=== PATIENT | female | born 1960 | race Hispanic/Latino ===

== ENCOUNTER 2016-04-01 13:58 | Emergency (ER) | payer OTHER ==
[~2016-04-01] VITALS: Ht 157.5 cm; Wt 94.8 kg
[~2016-04-01 13:58] MED LIST: ALBUTEROL SULFAT3 M1 INH; AUGMENTIN 875 M1 TAB PO; FLONASE120 SPRAY/ NAS; IOPHEN C-NR 10473 ML PO; MEDROL DOSEPAK1 PAC PO; MEDROL4 MG PO; MOTRIN600 MG PO; NORCO 325 MG-51 TAB PO; NOVAPLUS V0.09 MG/Ac INH; PREDNISONE10 MG PO; PRINIVIL 5MG5 MG; PROAIR HFA0.09 MG/Ac INH; PROMETH/CODEIN120 ML PO; PROTONIX 40MG T40 MG PO; ROBITUSSIN W/CO10 ML PO; SIMVASTATIN20 M1; VALIUM5 M1 PO; VICODIN5-300 PO; VITAMIN D50000 IU PO; XANAX0.5 MG PO; ZITHROMAX Z-PA250 M1 PO; [UNRECOGNIZED DRUG - OTHER] PO
--- NOTE | 2016-04-01 16:07 | ED GENERAL ADULT ---
History of Present Illness General Chief Complaint: General Adult Stated Complaint: BACK AND LEG PAIN Source: patient Exam Limitations: no limitations Vital Signs & Intake/Output Vital Signs & Intake/Output Vital Signs Date Time Temp Pulse Resp B/P Pulse O2 O2 Flow FiO2 Ox Delivery Rate 04/01 1657 94 16 131/78 96 Room Air 04/01 1432 98.5 112 20 140/93 99 Room Air Allergies Coded Allergies: NO KNOWN ALLERGIES (04/01/16) Uncoded Allergies: PCN (Intermediate, HIVES 04/01/16) Triage Note: C/O LEFT LOWER LEG PAIN RADIATING TO BUTTOCK X 2 DAYS. ALSO STATES SHE WAS NAUSEATED EARLIER AND HAS HAD SOME CHEST TIGHTNESS TODAY. Triage Nurses Notes Reviewed? yes Onset: Gradual Duration: day(s): (1) Timing: no prior history Injury Environment: home Severity: moderate Severity Numbers: 6 Modifying Factors: Improves With: immobilization. Worsens With: movement. HPI: Patient is a 56-year-old female with remote history of colon cancer, in remission for over 10 years now presenting to the emergency department with chief complaint of left-sided low back pain that radiates into the left buttock and down the left leg. Pain has been going on for the past 2 days worse with movement. Denies any injury or falls. History of similar symptoms on the right side several years ago. Denies any lower extremity weakness. No urinary incontinence or retention. Area and she reports that this morning she had an episode of shortness of breath. She called her primary care physician who told her to come in to rule out a blood clot in her leg. Denies any calf pain or swelling. No recent travel. Denies any chest pain or palpitations. (RACH SMITH) Reconcile Medications Albuterol Sulfate 3 ML NEB 3 ML INH TID PRN RESPIRATORY (Reported) Albuterol Sulfate (Proair Hfa) 0.09 MG/Actuation SUSAN 2 PUFF INH PRN RESPIRATORY (Reported) Alprazolam (Xanax) 0.5 MG TAB 1 TAB PO PRN ANXIETY (Reported) ERGOCALCIFEROL (VITAMIN D2) (Vitamin D2) 50,000 IU SGL 1 CAP PO QSUN SUPPLEMENT (Reported) Fish Oil (The Very Finest Fish Oil [place]-3) (Unknown Strength) OIL (Unknown Dose) PO DAILY SUPPLEMENT (Reported) HYDROCODONE/ACETAMINOPHEN (Hydrocodon-Acetaminophen 5-325) 1 TAB TAB 1 TAB PO Q6 PRN BREAKTHROUGH PAIN Ibuprofen (Motrin) 600 MG TAB 1 TAB PO Q6 PRN PAIN Lisinopril (Prinivil) (Unknown Strength) TAB (Unknown Dose) UNKNOWN (Reported ) Pantoprazole Sodium (Protonix) 40 MG TAB 40 MG PO DAILY PRN GI (Reported) Prednisone 20 MG TABLET 1 TAB PO BID back pain Simvastatin (Unknown Strength) TAB (Unknown Dose) UNKNOWN (Reported) (KIM WYLIE,KATHLEEN) Past History Travel History Traveled to [place] past 21 day No Medical History Any Pertinent Medical History? 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 No (RACH SMITH) Review of Systems Review of Systems Constitutional: Reports: no symptoms. Comments Review of systems: See HPI, All other systems negative. Constitutional, no chills fever or weight loss HEENT: No visual changes no sore throat no congestion Cardiovascular: No chest pain ,palpitation , orthopnea or ankle swelling Skin, no jaundice no rashes Respiratory: No cough sputum or hemoptysis GI: No nausea no vomiting : No dysuria No hematuria Muscle skeletal: no neck pain, Neurologic: No numbness no confusion Psych: No stress anxiety or depression,. Heme/endocrine: No bruising no bleeding no polyuria or polydipsia Immunology: No splenectomy or history of AIDS (RACH SMITH) Physical Exam Physical Exam General Appearance: well developed/nourished, no apparent distress, alert, awake , comfortable Comments: Well-developed well-nourished person in no acute distress HEENT: Pupils equally round and reactive to light and accommodation. Nose is atraumatic. Neck: Supple, no lymphadenopathy, normal range of motion without pain or tenderness Back: Tenderness to palpation of the left lumbar paraspinal muscles. No bony tenderness to palpation throughout entire spine. Negative modified straight leg raise bilaterally. Limited range of motion of the back secondary to pain. Cardiovascular: Regular rate and rhythms no murmurs rubs or gallops, normal JVP Respiratory: Chest nontender. No respiratory distress.breath sounds clear to auscultation bilaterally Abdomen: Soft, nontender nondistended, no appreciable organomegaly. Normal bowel sounds. No ascites Extremity: No edema, no calf tenderness to palpation, normal and equal pulses. Muscular strength is 5 out of 5 in all joints. Subpoena Server strength is equal and symmetric bilaterally. Neuro: Alert oriented x3, motor sensory normal, patellar reflexes are 2+ bilaterally. Skin: No appreciable rash on exposed skin, skin is warm and dry. Psych: Mood and affect is normal, memory and judgment is normal. Core Measures ACS in differential dx? Yes CVA/TIA Diagnosis: No Severe Sepsis Present: No Septic Shock Present: No (OLIVIER LEUNG,RACH) Progress Differential Diagnoses I considered the following diagnoses in my evaluation of the patient: DVT, muscle strain, sciatica, herniated disc, cauda equina, pe Plan of Care: Orders Procedure Date/time Status Telemetry/Senior Planning Analyst 04/01 1607 Active URINALYSIS 04/01 1606 Complete TROPONIN LEVEL 04/01 1606 Complete D-DIMER 04/01 1606 Complete COMPREHENSIVE METABOLIC PANEL 04/01 1606 Complete CBC WITHOUT DIFFERENTIAL 04/01 1606 Complete EKG 04/01 1431 Active Laboratory Tests 04/01/16 1627: Anion Gap 13, Estimated GFR > 60, BUN/Creatinine Ratio 15.0, Glucose 208 H, Calcium 9.7, Total Bilirubin 0.5, AST 44 H, ALT 58 H, Alkaline Phosphatase 81, Troponin I < 0.01, Total Protein 7.9, Albumin 4.3, Globulin 3.6, Albumin/ Globulin Ratio 1.2, D-Dimer < 200, CBC w Diff NO MAN DIFF REQ, RBC 4.70, MCV 95.6, MCH 33.0 H, RDW 12.3, MPV 8.7, Gran % 55.7, Lymphocytes % 35.4, Monocytes % 4.9, Eosinophils % 3.5, Basophils % 0.5, Absolute Granulocytes 5.5, Absolute Lymphocytes 3.5 H, Absolute Monocytes 0.5, Absolute Eosinophils 0.3, Absolute Basophils 0.1, PUBS MCHC 34.6, Urine Color YEL, Urine Clarity CLEAR, Urine pH 6.0, Ur Specific [place] 1.010, Urine Protein NEG, Urine Ketones NEG, Urine Nitrite NEG, Urine Bilirubin NEG, Urine Urobilinogen 0.2, Ur Leukocyte Esterase NEG, Ur Microscopic EXAM NOT REQUIRED, Urine Hemoglobin NEG, Urine Glucose NEG Diagnostic Imaging: Viewed by Me: Radiology Read. Discussed w/RAD: Radiology Read. Radiology Impression: PATIENT: OLIVIA LOUIE PRESENT AGE: 56 PATIENT ACCOUNT NO: [id number] : 61 LOCATION: [facility] ORDERING PHYSICIAN: RACH LEUNG SERVICE DATE: 04/01/16 EXAM TYPE: RAD - XRY-PORTABLE CHEST XRAY EXAMINATION: XR PORTABLE CHEST CLINICAL INFORMATION: Cardiomegaly. Generous of breath. COMPARISON: Chest x-ray 05/16/2015 TECHNIQUE: Portable AP view of the chest was obtained. 4:19 PM FINDINGS: No significant abnormality is noted involving the heart, lungs, mediastinum, bony thorax or soft tissues. IMPRESSION: Normal chest. DICTATED BY: MAJOR MELENDEZ MD DATE/TIME DICTATED:04/01/161640 STEAM HAND:LORETA DATE/TIME TRANSCRIBED:1640 CONFIDENTIAL, DO NOT COPY WITHOUT APPROPRIATE AUTHORIZATION. < Electronically signed in Other Vendor System> SIGNED BY: MAJOR MELENDEZ MD 1645 CXR Impression: no acute abnormality, no infiltrates, normal size heart, normal mediastinum Initial ED EKG: sinus rhythm, 98 bpm, left ventricular hypertrophy Comments: Patient medicated with Toradol arrival, likely sciatica. Patient premature several of the vitals are stable and no current symptoms. Cannot exclude PE at this time. D-dimer ordered. Patient informed of all lab work results. EKG is unchanged chest x-ray unremarkable. Patient will be discharged treated for sciatica. She was informed that steroids can increase blood glucose level and she Should keep an eye on her blood glucose levels on prednisone. (OLIVIER LEUNG,RACH) Departure Departure Time of Disposition: 1753 Disposition: HOME OR SELF CARE Condition: Stable Clinical Impression Primary Impression: Sciatica Qualifiers: Laterality: left Qualified Code: M54.32 - Sciatica, left side Referrals: DIMITRY WYLIE,WENDY Painting (PCP/Family) Additional Instructions: Follow-up with your primary care physician call to make appointment. Take prednisone as prescribed. Return for worsening symptoms or concerns. Avoid heavy lifting. Departure Forms: Customer Survey General Discharge Information Prescriptions: Current Visit Scripts Prednisone 1 TAB PO BID #6 TAB (RACH SMITH) PA/HEALTH SAFETY AND ENVIRONMENT MANAGER Co-Sign Statement Statement: ED Attending supervision documentation- [] I saw and evaluated the patient. I have also reviewed all the pertinent lab results and diagnostic results. I agree with the findings and the plan of care as documented in the PA's/HEALTH SAFETY AND ENVIRONMENT MANAGER's documentation. x I have reviewed the ED Record and agree with the PA's/HEALTH SAFETY AND ENVIRONMENT MANAGER's documentation. [] Additions or exceptions (if any) to the PAs/HEALTH SAFETY AND ENVIRONMENT MANAGER's note and plan are summarized below: [] (KIM WYLIE,KATHLEEN) Critical Care Note Critical Care Note Critical Care Time: non-applicable (RACH SMITH)
[2016-04-01 16:39] LABS: ABSOLUTE BASOPHIL COUNT 0.1 /CUMM (0.0-0.2); ABSOLUTE EOSINOPHIL COUNT 0.3 /CUMM (0.0-0.7); ABSOLUTE GRANULOCYTE CT 5.5 /CUMM (1.4-6.5); ABSOLUTE MONOCYTE COUNT 0.5 /CUMM (0.10-0.60); BASOPHIL % 0.5 % (0.0-2.0); EOSINOPHIL % 3.5 % (0-5); GRANULOCYTE % 55.7 % (42.2-75.2); MEAN CORPUSCULAR HGB CONC 34.6 G/DL (33.0-37.0); MEAN CORPUSCULAR VOLUME 95.6 FL (81.0-99.0); MEAN PLATELET VOLUME 8.7 FL (7.4-10.4); PLATELET COUNT 236 /CUMM (130-400); RBC DISTRIBUTION WIDTH 12.3 % (11.5-14.5); WHITE BLOOD CELL COUNT 9.9 /CUMM (4.8-10.8)
[2016-04-01 16:45] LABS: ABSOLUTE LYMPH COUNT 3.5 /CUMM (1.2-3.4)
--- NOTE | 2016-04-01 16:46 | RADIOLOGY REPORT ---
EXAMINATION: XR PORTABLE CHEST CLINICAL INFORMATION: Cardiomegaly. Generous of breath. COMPARISON: Chest x-ray 05/16/2015 TECHNIQUE: Portable AP view of the chest was obtained. 4:19 PM FINDINGS: No significant abnormality is noted involving the heart, lungs, mediastinum, bony thorax or soft tissues. IMPRESSION: Normal chest.
[2016-04-01 16:57] VITALS: BP 131/78
[2016-04-01] MEDS ORDERED: PREDNISONE20 M1 PO (17:57)
== END 2016-04-01 18:18 ==
LOC: ERH 13:58
PROVIDERS: Physician Assistant
DX: M54.42 Lumbago with sciatica, left side (principal)
CPT/HCPCS: 81003; 93005; 93010; J1885; J3101

== ENCOUNTER 2016-05-17 00:18 | Emergency (ER) | payer OTHER ==
[~2016-05-17] VITALS: Ht 162.6 cm; Wt 86.2 kg
[~2016-05-17 00:18] MED LIST changes: +PREDNISONE20 M1 PO
--- NOTE | 2016-05-17 00:27 | ED CARDIAC/CP/PALPITATIONS ---
History of Present Illness General Chief Complaint: General Adult Stated Complaint: LT ARM PAIN,SLIGHT NAUSEA/CP PER PT Source: patient Exam Limitations: no limitations Vital Signs & Intake/Output Vital Signs & Intake/Output Vital Signs Date Time Temp Pulse Resp B/P Pulse O2 O2 Flow FiO2 Ox Delivery Rate 05/17 0119 97 Room Air 05/17 0118 122/75 05/17 0046 96.2 100 18 159/105 97 Room Air Allergies Uncoded Allergies: PCN (Intermediate, HIVES 04/01/16) Reconcile Medications Albuterol Sulfate 3 ML NEB 3 ML INH TID PRN RESPIRATORY (Reported) Albuterol Sulfate (Proair Hfa) 0.09 MG/Actuation SUSAN 2 PUFF INH PRN RESPIRATORY (Reported) Alprazolam (Xanax) 0.5 MG TAB 1 TAB PO PRN ANXIETY (Reported) ERGOCALCIFEROL (VITAMIN D2) (Vitamin D2) 50,000 IU SGL 1 CAP PO QSUN SUPPLEMENT (Reported) Fish Oil (The Very Finest Fish Oil [place]-3) (Unknown Strength) OIL (Unknown Dose) PO DAILY SUPPLEMENT (Reported) HYDROCODONE/ACETAMINOPHEN (Hydrocodon-Acetaminophen 5-325) 1 TAB TAB 1 TAB PO Q6 PRN BREAKTHROUGH PAIN Ibuprofen (Motrin) 600 MG TAB 1 TAB PO Q6 PRN PAIN Lisinopril (Prinivil) (Unknown Strength) TAB (Unknown Dose) UNKNOWN (Reported ) Meloxicam (Mobic) 15 MG TABLET 1 TAB PO DAILY SHOULDER STRAIN Pantoprazole Sodium (Protonix) 40 MG TAB 40 MG PO DAILY PRN GI (Reported) Prednisone 20 MG TABLET 1 TAB PO BID back pain Simvastatin (Unknown Strength) TAB (Unknown Dose) UNKNOWN (Reported) Triage Nurses Notes Reviewed? yes Onset: INTERMITTENT Duration: hour(s): (FEW) Timing: single episode today Quality/Severity: moderate Location: LEFT CHEST Radiation: back, LEFT ARM Activities at Onset: none HPI: 56-year-old female with history of diabetes, hypertension, distal edema presents from home for chief complaint of left arm pain, heaviness, chest pain nausea shortness of breath and sweating. She states symptoms started around 2:00 this afternoon when she was getting lunch ready in the kitchen. She states that she took one Chasity aspirin at that time and felt better. This evening around 9:00 when she was laying down for sleep she felt the pain returned. She states she was unable to sleep secondary to the pain. She was short of breath. She also complains of some URI symptoms over the last few days and she has had low-grade fevers up to 99 and 100 at home today. No productive sputum. Patient's had a cardiac catheterization 2 or 3 years ago which was ordered by Dr. Byrd. She states the cardiac catheterization was normal. She is a daily smoker. Positive family history of cardiac disease. Past History Medical History Any Pertinent Medical History? 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 No Review of Systems Review of Systems Constitutional: Denies: chills, fever. EENTM: Reports: no symptoms. Respiratory: Reports: short of breath. Denies: cough, sputum production. Cardiovascular: Reports: chest pain. Denies: palpitations. GI: Denies: abdominal pain. Genitourinary: Reports: no symptoms. Musculoskeletal: Reports: back pain, joint pain, muscle pain, muscle stiffness, neck pain. Skin: Reports: no symptoms. Neurological/Psychological: Reports: anxiety. Hematologic/Endocrine: Denies: bruising, bleeding. Immunologic/Allergic: Denies: splenectomy. All Other Systems: Reviewed and Negative Physical Exam Physical Exam General Appearance: well developed/nourished, alert, awake, anxious, mild distress Head: atraumatic, normal appearance, active bleeding Eyes: Bilateral: normal appearance, PERRL, EOMI. Ears, Nose, Throat: normal pharynx, hearing grossly normal Neck: normal inspection, supple, full range of motion Respiratory: normal breath sounds, chest non-tender, no respiratory distress Cardiovascular: regular rate/rhythm, NO M/R/G Peripheral Pulses: 2+ radial (R), 2+ radial (L) Back: normal inspection Extremities: normal inspection, normal range of motion, no edema Neurologic/Psych: no motor/sensory deficits, awake, alert, oriented x 3 Skin: intact, normal color, warm/dry Core Measures ACS in differential dx? Yes ASA ordered for poss ACS? Yes-ordered Severe Sepsis Present: No Septic Shock Present: No Progress Differential Diagnosis: AMI, aortic dissection, costochondritis, musculoskeletal pain, myocarditis, pericarditis, pneumonia, pneumothorax, pulmonary embolism, PUD/GERD, unstable angina Plan of Care: Orders Procedure Date/time Status TROPONIN LEVEL 05/18 399 Complete EKG 05/18 399 Active Telemetry/Plating Tank Operator 05/17 37 Active TROPONIN LEVEL 05/17 37 Complete PARTIAL THROMBOPLASTIN TIME 05/17 37 Complete PROTHROMBIN TIME 05/17 37 Complete D-DIMER 05/17 37 Complete COMPREHENSIVE METABOLIC PANEL 05/17 37 Complete CBC WITHOUT DIFFERENTIAL 05/17 37 Complete EKG 05/17 21 Active Laboratory Tests 05/17/16 0407: Troponin I < 0.01 05/17/16 0100: Anion Gap 10, Estimated GFR > 60, BUN/Creatinine Ratio 12.9, Glucose 162 H, Calcium 9.5, Total Bilirubin 0.5, AST 38 H, ALT 57 H, Alkaline Phosphatase 70, Troponin I < 0.01, Total Protein 7.2, Albumin 4.0, Globulin 3.2, Albumin/ Globulin Ratio 1.3, PT 10.8, INR 1.03, APTT 29, D-Dimer 208, CBC w Diff NO MAN DIFF REQ, RBC 4.68, MCV 96.0, MCH 33.2 H, RDW 12.3, MPV 9.3, Gran % 48.7, Lymphocytes % 42.1, Monocytes % 5.3, Eosinophils % 3.3, Basophils % 0.6, Absolute Granulocytes 4.6, Absolute Lymphocytes 3.9 H, Absolute Monocytes 0.5, Absolute Eosinophils 0.3, Absolute Basophils 0.1, PUBS MCHC 34.6 CP 5/10 FROM 08/09. LABS STILL PENDING. 2:45 AM CXR/SHOULDER XRAY NEGATIVE. PATIENT CURRENTLY PAIN FREE. REPEAT TROPONIN/EKG AT 4 AM. D/W PATIENT AND FAMILY. 5 am repeat troponin /ekg normal. No recurrence of symptoms. Cardiac cath within last 3 years WNL. (DC WYLIE,JAREK) Diagnostic Imaging: Viewed by Me: Radiology Read. Discussed w/RAD: Radiology Read. Radiology Impression: PATIENT: OLIVIA LOUIE PRESENT AGE: 56 PATIENT ACCOUNT NO: [id number] : 61 LOCATION: [facility] ORDERING PHYSICIAN: JAREK IRWIN MD SERVICE DATE: 05/17/16 EXAM TYPE: RAD - XRY -SHOULDER COMPLETE-LEFT EXAMINATION: XR SHOULDER, LEFT CLINICAL INFORMATION: Severe left shoulder pain. COMPARISON: None TECHNIQUE: Three views of the left shoulder. FINDINGS: No fracture or dislocation. The humeral head articulates appropriately with the glenoid. Small marginal osteophytes are noted. Mild degenerative changes at the acromioclavicular joint. The visualized lung is clear. IMPRESSION: No fracture or malalignment. Mild degenerative changes. DICTATED BY: PRADEEP HARRIS MD DATE/TIME DICTATED:05/17/16221 GOLD LETTERER:GUPTA DATE/TIME TRANSCRIBED:05/17/16221 CONFIDENTIAL, DO NOT COPY WITHOUT APPROPRIATE AUTHORIZATION. <Electronically signed in Other Vendor System> SIGNED BY: PRADEEP HARRIS MD 05/17/16225, PATIENT: OLIVIA LOUIE PRESENT AGE: 56 PATIENT ACCOUNT NO: [id number] : 62 LOCATION: [facility] ORDERING PHYSICIAN: JAREK IRWIN MD SERVICE DATE: 05/17/16 EXAM TYPE: RAD - XRY-SHOULDER COMPLETE-LEFT EXAMINATION: XR SHOULDER, LEFT CLINICAL INFORMATION: Severe left shoulder pain. COMPARISON: None TECHNIQUE: Three views of the left shoulder. FINDINGS: No fracture or dislocation. The humeral head articulates appropriately with the glenoid. Small marginal osteophytes are noted. Mild degenerative changes at the acromioclavicular joint. The visualized lung is clear. IMPRESSION: No fracture or malalignment. Mild degenerative changes. DICTATED BY: PRADEEP HARRIS MD DATE/TIME DICTATED:05/17/16221 GOLD LETTERER:GUPTA DATE/TIME TRANSCRIBED:05/17/16221 CONFIDENTIAL, DO NOT COPY WITHOUT APPROPRIATE AUTHORIZATION. <Electronically signed in Other Vendor System> SIGNED BY: PRADEEP HARRIS MD 05/17/16225 Initial ED EKG: NSR, inferior t wave inversions Prior EKG: unchanged Repeat EKG: unchanged Departure Departure Time of Disposition: 0504 Disposition: HOME OR SELF CARE Condition: Stable Clinical Impression Primary Impression: Arm pain, left Referrals: DIMITRY WYLIE,WENDY Painting (PCP/Family) Additional Instructions: Please follow up with her primary care doctor in the office. Take the Mobic as directed for pain. Return to the ER for any changing or worsening symptoms. Departure Forms: Customer Survey General Discharge Information Prescriptions: Current Visit Scripts Meloxicam (Mobic) 1 TAB PO DAILY #14 TAB Critical Care Note Critical Care Note Critical Care Time: non-applicable
[2016-05-17 01:13] LABS: ABSOLUTE BASOPHIL COUNT 0.1 /CUMM (0.0-0.2); ABSOLUTE EOSINOPHIL COUNT 0.3 /CUMM (0.0-0.7); ABSOLUTE GRANULOCYTE CT 4.6 /CUMM (1.4-6.5); ABSOLUTE LYMPH COUNT 3.9 /CUMM (1.2-3.4); ABSOLUTE MONOCYTE COUNT 0.5 /CUMM (0.10-0.60); BASOPHIL % 0.6 % (0.0-2.0); EOSINOPHIL % 3.3 % (0-5); GRANULOCYTE % 48.7 % (42.2-75.2); HEMATOCRIT 44.9 % (37-47); MEAN CORPUSCULAR HGB 33.2 PG (27.0-31.0); MEAN CORPUSCULAR HGB CONC 34.6 G/DL (33.0-37.0); MEAN PLATELET VOLUME 9.3 FL (7.4-10.4); PLATELET COUNT 204 /CUMM (130-400); RBC DISTRIBUTION WIDTH 12.3 % (11.5-14.5); RED BLOOD CELL CT 4.68 /CUMM (4.20-5.40); WHITE BLOOD CELL COUNT 9.4 /CUMM (4.8-10.8)
[2016-05-17 01:27] LABS: PT 10.8 SEC (9.4-12.5); PTT 29 SEC (25-37)
--- NOTE | 2016-05-17 02:25 | RADIOLOGY REPORT ---
EXAMINATION: XR CHEST CLINICAL INFORMATION: Chest pain radiating to the back/shoulder COMPARISON: 04/01/2016 TECHNIQUE: 2 views of the chest were obtained. FINDINGS: The lungs are well expanded. There is no focal consolidation, edema, or effusion. No pneumothorax. The cardiomediastinal silhouette is within normal limits. No acute osseous abnormality. IMPRESSION: Clear lungs. Stable cardiomediastinal silhouette without widening.
--- NOTE | 2016-05-17 02:26 | RADIOLOGY REPORT ---
EXAMINATION: XR SHOULDER, LEFT CLINICAL INFORMATION: Severe left shoulder pain. COMPARISON: None TECHNIQUE: Three views of the left shoulder. FINDINGS: No fracture or dislocation. The humeral head articulates appropriately with the glenoid. Small marginal osteophytes are noted. Mild degenerative changes at the acromioclavicular joint. The visualized lung is clear. IMPRESSION: No fracture or malalignment. Mild degenerative changes.
[2016-05-17] MEDS ORDERED: MOBIC15 M1 PO (05:05)
[2016-05-17 05:12] VITALS: BP 109/71
== END 2016-05-17 05:32 ==
LOC: ERH 00:18
PROVIDERS: Emergency Medicine
DX: M79.602 Pain in left arm (principal); R07.9 Chest pain, unspecified
CPT/HCPCS: 73030-LT; 93005; 93010; 96374; J1885; J3490

== ENCOUNTER 2017-04-29 10:16 | Emergency (ER) | payer OTHER ==
[~2017-04-29] VITALS: Ht 157.5 cm; Wt 93.4 kg
[~2017-04-29 10:16] MED LIST changes: +CYCLOBENZAPRINE10 M1 PO; +MOBIC15 M1 PO
--- NOTE | 2017-04-29 10:51 | ED CARDIAC/CP/PALPITATIONS ---
History of Present Illness General Chief Complaint: General Adult Stated Complaint: FAST HEART RATE Vital Signs & Intake/Output Vital Signs & Intake/Output Vital Signs Date Time Temp Pulse Resp B/P B/P Pulse O2 O2 Flow FiO2 Mean Ox Delivery Rate 04/29 1734 84.0 100 Room Air 04/29 1542 96.5 95 16 115/75 98 Room Air 04/29 1445 90 18 103/73 99 Nasal 2.0L Cannula 04/29 1119 98 Room Air 04/29 1043 96.7 120 18 131/92 95 Room Air Room Air ED Intake and Output 04/30 0000 04/29 1200 Intake Total 1000 Output Total Balance 1000 Intake, IV 1000 Patient 206 lb Weight Weight Reported by Patient Measurement Method Allergies Coded Allergies: Penicillins (Intermediate, HIVES 04/17/17) latex (Intermediate, HIVES 04/17/17) Reconcile Medications Losartan Potassium 50 MG TABLET 1 TAB PO DAILY HEART (Reported) Metformin HCl (Metformin HCl ER) 500 MG TAB.ER.24H 2 TAB PO BID DIABETES ( Reported) Pravastatin Sodium 20 MG TABLET 1 TAB PO DAILY CHOLESTEROL (Reported) Sitagliptin Phosphate (Januvia) 100 MG TABLET 1 TAB PO DAILY DIABETES ( Reported) Triage Note: PT TO ED WITH C/O "FAST HEART RATE", HEART RATED IN TRIAGE 120. 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 Surgical History Surgical History: cholecystectomy, LEFT LUMPECTOMY 2002 NEGATIVE CARDIAC CATH 2014 (TELLY - NEGATIVE) Psychosocial History What is your primary language Slovenian Tobacco Use: Current Daily Use Daily Tobacco Use Amount/Type: =< 4 Cigarettes daily ETOH Use: denies use Illicit Drug Use: denies illicit drug use Progress Plan of Care: Orders Procedure Date/time Status TROPONIN LEVEL 04/29 1630 Complete EKG 04/29 1630 Active EKG 04/29 1203 Active Telemetry/Sleeve Setter Lockstitch 04/29 1109 Active TROPONIN LEVEL 04/29 1109 Complete PARTIAL THROMBOPLASTIN TIME 04/29 1109 Complete PROTHROMBIN TIME 04/29 1109 Complete D-DIMER 04/29 1109 Complete COMPREHENSIVE METABOLIC PANEL 04/29 1109 Complete CHOLESTEROL 04/29 1109 Complete CBC WITHOUT DIFFERENTIAL 04/29 1109 Complete EKG 04/29 1017 Active Current Medications Sig/Linsey Start time Last Medication Dose Stop Time Status Admin Sodium Chloride 1,000 ML ONCE ONE 04/29 1115 CAN (Normal Saline 0.9%) 04/29 1754 Laboratory Tests 04/29/17 1623: Troponin I < 0.01 04/29/17 1228: Anion Gap 12, Estimated GFR > 60, BUN/Creatinine Ratio 16.7, Glucose 218 H, Calcium 9.0, Total Bilirubin 0.5, AST 48 H, ALT 56 H, Alkaline Phosphatase 62, Troponin I < 0.01, Total Protein 6.7, Albumin 3.7, Globulin 3.0, Albumin/ Globulin Ratio 1.2, Cholesterol 193, PT 11.2, INR 1.07, APTT 28, D-Dimer High Sensitivty < 200, CBC w Diff NO MAN DIFF REQ, RBC 4.37, MCV 95.0, MCH 33.0 H, MCHC 34.8, RDW 12.1, MPV 8.8, Gran % 58.2, Lymphocytes % 34.1, Monocytes % 4.3, Eosinophils % 3.0, Basophils % 0.4, Absolute Granulocytes 5.5, Absolute Lymphocytes 3.2, Absolute Monocytes 0.4, Absolute Eosinophils 0.3, Absolute Basophils 0 Departure Departure Condition: Stable Referrals: Whitley WYLIE,Ninfa Painting (PCP/Family) Departure Forms: Customer Survey General Discharge Information
--- NOTE | 2017-04-29 11:09 | ED GENERAL ADULT ---
History of Present Illness General Chief Complaint: General Adult Stated Complaint: FAST HEART RATE Source: patient Exam Limitations: no limitations Vital Signs & Intake/Output Vital Signs & Intake/Output Vital Signs Date Time Temp Pulse Resp B/P B/P Pulse O2 O2 Flow FiO2 Mean Ox Delivery Rate 04/29 1734 84.0 100 Room Air 04/29 1542 96.5 95 16 115/75 98 Room Air 04/29 1445 90 18 103/73 99 Nasal 2.0L Cannula 04/29 1119 98 Room Air 04/29 1043 96.7 120 18 131/92 95 Room Air Room Air ED Intake and Output 04/30 0000 04/29 1200 Intake Total 1000 Output Total Balance 1000 Intake, IV 1000 Patient 206 lb Weight Weight Reported by Patient Measurement Method Allergies Coded Allergies: Penicillins (Intermediate, HIVES 04/17/17) latex (Intermediate, HIVES 04/17/17) Reconcile Medications Losartan Potassium 50 MG TABLET 1 TAB PO DAILY HEART (Reported) Metformin HCl (Metformin HCl ER) 500 MG TAB.ER.24H 2 TAB PO BID DIABETES ( Reported) Pravastatin Sodium 20 MG TABLET 1 TAB PO DAILY CHOLESTEROL (Reported) Sitagliptin Phosphate (Januvia) 100 MG TABLET 1 TAB PO DAILY DIABETES ( Reported) Triage Note: PT TO ED WITH C/O "FAST HEART RATE", HEART RATED IN TRIAGE 120. Triage Nurses Notes Reviewed? yes Onset: Gradual Duration: day(s): (1) Timing: recent history Injury Environment: home Severity: moderate Severity Numbers: 7 Modifying Factors: Improves With: immobilization. Worsens With: movement. HPI: Patient is a 57 female presenting to the emergency department with chief complaint of left-sided shoulder pain, left-sided neck pain that began this morning around 4 AM. Patient reports that she's had similar symptoms in the past. Positive associated shortness of breath. Patient also reports that she is experiencing palpitations intermittently. She did get up this morning and have 5-6 loose bowel movements. Palpitations seemed to worsen after that. Denies numbness or tingling. Denies any abdominal pain. Denies any back pain. No urinary frequency and urgency or dysuria. She does report that she feels dehydrated and her mouth is dry. (Kee LEUNG,Ember) Past History Travel History Traveled to [place] past 21 day No Medical History Any Pertinent Medical History? 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 No (Ember Zabala) Review of Systems Review of Systems Constitutional: Reports: no symptoms. Comments Review of systems: See HPI, All other systems negative. Constitutional, no chills fever or weight loss HEENT: No visual changes no sore throat no congestion Cardiovascular: No orthopnea or ankle swelling Skin, no jaundice no rashes Respiratory: No cough sputum or hemoptysis GI: No nausea no vomiting : No dysuria No hematuria Muscle skeletal: no back pain, no neck pain, Neurologic: No numbness no confusion, no headaches Psych: No stress anxiety or depression,. Heme/endocrine: No bruising no bleeding no polyuria or polydipsia Immunology: No splenectomy or history of AIDS (Ember Zabala) Physical Exam Physical Exam General Appearance: well developed/nourished, no apparent distress, alert, awake , comfortable Comments: Well-developed well-nourished person in no acute distress HEENT: Pupils equally round and reactive to light and accommodation. Nose is atraumatic. External auditory canal and Tympanic membranes clear. Pharynx normal. No swelling or edema. Mild reproducible pain to palpation over the left jaw. Neck: Supple, no lymphadenopathy, normal range of motion without pain or tenderness Back: Nontender Cardiovascular: Regular rate and rhythms no murmurs rubs or gallops, normal JVP Respiratory: Chest is mildly tender over the left side of the chest.. No respiratory distress.breath sounds clear to auscultation bilaterally Abdomen: Soft, nontender nondistended, no appreciable organomegaly. Normal bowel sounds. No ascites, no rebound or guarding. Extremity: No edema, no calf tenderness to palpation, normal and equal pulses. Tender palpation over the left shoulder. Tender palpation on left axilla region. Difficult to appreciate any swollen lymph nodes due to body habitus. Neuro: Alert oriented x3, motor sensory normal, cranial nerves II through XII grossly intact. Walks with steady gait. Patellar reflexes are 2+ bilaterally. Skin: No appreciable rash on exposed skin, skin is warm and dry. Psych: Mood and affect is normal, memory and judgment is normal. Core Measures ACS in differential dx? Yes CVA/TIA Diagnosis: No Sepsis Present: No Sepsis Focused Exam Completed? No (Kee LEUNG,Ember) Progress Differential Diagnoses I considered the following diagnoses in my evaluation of the patient: ACS, actually abnormality, dehydration, cardiac arrhythmia, thyroid dysfunction, pulmonary embolus Plan of Care: Orders Procedure Date/time Status TROPONIN LEVEL 04/29 1630 Complete EKG 04/29 1630 Active EKG 04/29 1203 Active Telemetry/Washing Machine Loader And Puller 04/29 1109 Active TROPONIN LEVEL 04/29 1109 Complete PARTIAL THROMBOPLASTIN TIME 04/29 1109 Complete PROTHROMBIN TIME 04/29 1109 Complete D-DIMER 04/29 1109 Complete COMPREHENSIVE METABOLIC PANEL 04/29 1109 Complete CHOLESTEROL 04/29 1109 Complete CBC WITHOUT DIFFERENTIAL 04/29 1109 Complete EKG 04/29 1017 Active Current Medications Sig/Linsey Start time Last Medication Dose Stop Time Status Admin Sodium Chloride 1,000 ML ONCE ONE 04/29 1115 CAN (Normal Saline 0.9%) 04/29 1754 Laboratory Tests 04/29/17 1623: Troponin I < 0.01 04/29/17 1228: Anion Gap 12, Estimated GFR > 60, BUN/Creatinine Ratio 16.7, Glucose 218 H, Calcium 9.0, Total Bilirubin 0.5, AST 48 H, ALT 56 H, Alkaline Phosphatase 62, Troponin I < 0.01, Total Protein 6.7, Albumin 3.7, Globulin 3.0, Albumin/ Globulin Ratio 1.2, Cholesterol 193, PT 11.2, INR 1.07, APTT 28, D-Dimer High Sensitivty < 200, CBC w Diff NO MAN DIFF REQ, RBC 4.37, MCV 95.0, MCH 33.0 H, MCHC 34.8, RDW 12.1, MPV 8.8, Gran % 58.2, Lymphocytes % 34.1, Monocytes % 4.3, Eosinophils % 3.0, Basophils % 0.4, Absolute Granulocytes 5.5, Absolute Lymphocytes 3.2, Absolute Monocytes 0.4, Absolute Eosinophils 0.3, Absolute Basophils 0 Patient asking to eat something after initial evaluation. Family gave patient Suzy's. Tachycardia responded to IV hydration. This could've been from dehydration. Diagnostic Imaging: Viewed by Me: Radiology Read. Discussed w/RAD: Radiology Read. CXR Impression: no acute abnormality, no infiltrates, normal size heart, normal mediastinum Initial ED EKG: NSR Prior EKG: unchanged Comments: Second troponin and EKG are unchanged. Patient is pain free after morphine and Toradol. Patient has been seen and evaluated several times in the past for similar symptoms. 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 Discussed with Dr. IRWIN and she agrees with plan. (Ember Zabala) Departure Departure Time of Disposition: 1727 Disposition: HOME OR SELF CARE Condition: Stable Clinical Impression Primary Impression: Palpitations Secondary Impressions: Chest pain Qualifiers: Chest pain type: unspecified Qualified Code: R07.9 - Chest pain, unspecified Referrals: Whitley WYLIE,[employer] (PCP/Family) Patsy Byrd MD Additional Instructions: follow-up with your primary care physician, increase fluid intake. Also follow -up with your irrigation equipment mechanic, return for worsening symptoms or concerns. Take [id number] Motrin or Tylenol as directed. Departure Forms: Customer Survey General Discharge Information (Ember Zabala) PA/ACCOUNTING MANAGER CONTROLLER Co-Sign Statement Statement: ED Attending supervision documentation- [] I saw and evaluated the patient. I have also reviewed all the pertinent lab results and diagnostic results. I agree with the findings and the plan of care as documented in the PA's/ACCOUNTING MANAGER CONTROLLER's documentation. [X] I have reviewed the ED Record and agree with the PA's/ACCOUNTING MANAGER CONTROLLER's documentation. [] Additions or exceptions (if any) to the PAs/ACCOUNTING MANAGER CONTROLLER's note and plan are summarized below: [] (Ange WYLIE,Eliza) Critical Care Note Critical Care Note Critical Care Time: 30-74 min (Ember Zabala)
--- NOTE | 2017-04-29 12:07 | RADIOLOGY REPORT ---
EXAMINATION: XR PORTABLE CHEST CLINICAL INFORMATION: Chest pain. Rule out cardiomegaly COMPARISON: 04/17/2017 TECHNIQUE: Portable frontal view of the chest was obtained. FINDINGS: Lung volumes are diminished. No focal consolidation or mass. Normal pulmonary vascularity. No pleural effusion or pneumothorax. Although AP portable radiographs with semiupright technique are suboptimal for evaluating the cardiac silhouette, the heart size does not appear enlarged, similar to the prior two-view chest x-ray 04/17/2017. The aorta is tortuous and/or ectatic. No acute osseous abnormality identified. IMPRESSION: Low lung volumes. No acute pulmonary disease. The cardiac silhouette does not appear enlarged.
[2017-04-29 12:36] LABS: ABSOLUTE BASOPHIL COUNT 0 /CUMM (0.0-0.2); ABSOLUTE EOSINOPHIL COUNT 0.3 /CUMM (0.0-0.7); ABSOLUTE GRANULOCYTE CT 5.5 /CUMM (1.4-6.5); ABSOLUTE LYMPH COUNT 3.2 /CUMM (1.2-3.4); ABSOLUTE MONOCYTE COUNT 0.4 /CUMM (0.10-0.60); BASOPHIL % 0.4 % (0.0-2.0); GRANULOCYTE % 58.2 % (42.2-75.2); HEMATOCRIT 41.6 % (37-47); MEAN CORPUSCULAR HGB CONC 34.8 G/DL (33.0-37.0); MEAN PLATELET VOLUME 8.8 FL (7.4-10.4); PLATELET COUNT 207 /CUMM (130-400); RBC DISTRIBUTION WIDTH 12.1 % (11.5-14.5); RED BLOOD CELL CT 4.37 /CUMM (4.20-5.40); WHITE BLOOD CELL COUNT 9.4 /CUMM (4.8-10.8)
[2017-04-29] MEDS ORDERED: JANUVIA100 M1 PO (13:03)
[2017-04-29] MEDS ORDERED: LOSARTAN POTASS50 M1 PO (13:03)
[2017-04-29] MEDS ORDERED: METFORMIN HCL500 M4 PO (13:04)
[2017-04-29] MEDS ORDERED: PRAVASTATIN SOD20 M2 PO (13:04)
[2017-04-29 13:17] LABS: PT 11.2 SEC (9.4-12.5); PTT 28 SEC (25-37)
[2017-04-29 15:42] VITALS: BP 115/75
== END 2017-04-29 17:37 ==
LOC: ERH 10:16
PROVIDERS: Physician Assistant
DX: R00.2 Palpitations (principal); R07.9 Chest pain, unspecified
CPT/HCPCS: 71045; 93005; 93010; 96361; 96374; 96375; J1885; J2405